=== PATIENT | male | born 1960 | race African-American/Black ===

== ENCOUNTER 2018-03-23 15:10 | Inpatient (IN) | payer OTHER ==
[2018-03-23] MEDS ORDERED: PROPOFOL 200 MG/20 ML VIAL ONE (16:23)
[2018-03-23] MEDS ORDERED: PHENYLEPHRINE-NS 100 MCG/ML 10 ML SYRINGE ONE (16:23)
[2018-03-23] MEDS ORDERED: Promethazine HCl 25 MG/ML VIAL SLOW IVP PRN (16:30)
[2018-03-23] MEDS ORDERED: Promethazine HCl 25 MG/ML VIAL IM PRN (16:30)
[2018-03-23] MEDS ORDERED: Ondansetron HCl/PF 4 MG/2 ML Vial IVP PRN (16:30)
[2018-03-23 17:02] LABS: Hemoglobin 7.5 g/dL (14.0-18.0)
--- NOTE | 2018-03-23 19:07 | CON ---
DATE OF CONSULTATION: NEPHROLOGY CONSULT REASON FOR CONSULTATION: End-stage renal disease, on maintenance hemodialysis. HISTORY OF PRESENT ILLNESS: This is a very pleasant 58-year-old gentleman, who presented to the hospital after having hematochezia. The patient's hemoglobin was 6. The patient is dialyzed on Friday, , and Friday. He was last dialysis on Friday. His potassium was normal, but he is developing hypertension and has received 2 units of blood. PAST MEDICAL HISTORY: 1. Hypertension. 2. ESRD, on dialysis Friday, , and Friday. 3. Anemia. 4. History of secondary hyperparathyroidism. 5. History of hypothyroidism. 6. History of diabetes mellitus. PAST SURGICAL HISTORY: None except AV fistula and tunneled catheter. ALLERGIES: REVIEWED. MEDICATIONS: Home medication list reviewed. REVIEW OF SYSTEMS: A 15-point review of systems was performed and negative except for positives noted above. NECK: No swelling or lumps. NOSE: No epistaxis or discharge. EYES: No diplopia or pain. MUSCULOSKELETAL: No joint pain. NEUROPSYCHIATRIC SYSTEMS: No suicidal ideation. No ideation. SKIN: Denies any rash or ulcer. CONSTITUTIONAL: No fever or chills. PHYSICAL EXAMINATION: CONSTITUTIONAL: The patient is awake and alert. VITAL SIGNS: Afebrile, pulse 90, breathing is 16, and blood pressure was 156/89. GENERAL APPEARANCE AND MENTAL STATUS: Fair. HEAD/NECK: Normocephalic. Atraumatic. EYES: EOMI. No deformity. EARS: Clear. No ulcers. NOSE: Intact. No lesions. MOUTH: Clear. No discharge. THROAT: Clear. No exudate. LUNGS: Clear. No crackles. CARDIAC: S1, S2. No rub. ABDOMEN: Benign. Bowel sounds positive. GENITALIA/RECTUM: Mauro absent. BACK/EXTREMITIES: Edema 0+. NEUROLOGICAL: Alert and motor intact. SKIN: LYMPHATICS: LABORATORY DATA: Labs show hemoglobin 6.4. Potassium is 4.3. ASSESSMENT AND PLAN: 1. Stage 6 chronic kidney disease. Plan dialysis. 2. Anemia, status post transfusion. 3. Hyperkalemia, stable. 4. Medications based on GFR are appropriate. 5. Hypertension. Plan dialysis. Risks versus benefits of dialysis were discussed. Job ID: [id number]
[2018-03-23] MEDS ORDERED: Ondansetron PF 4 MG/2 ML Vial IVP PRN (19:09)
[2018-03-23] MEDS ORDERED: Ondansetron ODT 4 MG TAB PO PRN (19:09)
[2018-03-23] MEDS ORDERED: Acetaminophen 325 MG TAB PO PRN (19:09)
[2018-03-23 19:28] LABS: HBSAg Index 0.42 S/CO (0-0.99); Hep B Core Total Ab Non-Reactive (NonReactive); Hep B Core Total Index 0.47 S/CO (0-0.79); Hep B Surf Ag Non-Reactive S/CO (NonReactive)
[2018-03-23] MEDS ORDERED: GoLYTELY 4,000 ml Bottle PO SCH (20:15)
[2018-03-23 20:20] LABS: Hep B Surf AB Reactive (NonReactive); Hep C IgG Ab Reflex HepC Qnt (NonReactive)
[2018-03-23 20:21] LABS: Hep C Index 14.39 S/CO (0-0.79)
[2018-03-23 20:22] LABS: HBSAB Concentration 287.27 mIU/mL
--- NOTE | 2018-03-23 20:40 | CON ---
DATE OF CONSULTATION: HISTORY OF PRESENT ILLNESS: Mr. Cruz is a 58-year-old gentleman, who was transferred from [facility] where he was brought from [facility] for 3 days, a rectal bleeding which he describes as bro-red. He has had associated nausea, weakness, and chills. He states he has never had bleeding like this in the past. He does report about 3 to 5 years ago. He had upper and lower endoscopies for anemia and was told nothing was found at that time. He was in his normal state of health when he started having these issues about 3 days ago. He has had some intermittent right lower chest pain for about a week. At the outside emergency room, he had a CAT scan, which was reportedly normal. On arrival here, blood pressure 171/73, pulse in 80s, temperature 98.2. He has been taking Naprosyn for the past couple of months for arthritic pain. He is also on Plavix. PAST MEDICAL HISTORY: Diabetes, history of hepatitis C, which he said was treated in 1999, he does not know if it has gone or not, hypertension, coronary artery disease, hypothyroidism. He is on hemodialysis Friday, , and Saturdays. He reports he has had previous coronary angiography, but did not have stents placed. He states he has some type of heart monitoring, but not a defibrillator. He has had a stent placed in the left shunt and has arm shunt. Chronic ischemic heart disease. PAST SURGICAL HISTORY: AV shunt left and right, right no longer in use, stent in left shunt, defibrillator implant. He states it is a monitor. He has never been shocked by anything in his chest. Please note, he had a chest tube for collapsed lung in the past. SOCIAL HISTORY: Former smoker. No alcohol or drugs. Not traveled outside yet. He is an inmate at [facility]. FAMILY HISTORY: Negative for GI disorders or liver disease. ALLERGIES: NONE KNOWN. MEDICATIONS: In detention: 1. Plavix. 2. Benadryl. 3. Gabapentin. 4. Insulin subcu Acarbose. 5. Amlodipine. 6. Atorvastatin. 7. Coreg. 8. Clotrimazole external. 9. Docusate suppository. 10. Hydralazine. 11. Isosorbide. 12. Lactulose p.r.n. 13. Levothyroxine. 14. He did receive some Protonix. 15. Aspirin once a day 81 mg. 16. Omeprazole. Medications here; 2 units of blood, Protonix drip were started. Medications at the outside facility; Protonix drip was started. He was typed and screened here, but not transfused. REVIEW OF SYSTEMS: Negative for chest pain, shortness of breath, or dyspnea on exertion. He is profoundly fatigued. He denies any lower abdominal pain. He has had some vague upper abdominal pain. IMAGING DATA: Outside CAT scan with oral contrast at 7:25 this morning showed some diverticulosis, no inflammatory changes. Atherosclerotic calcifications of abdominal aorta and its branches. No comment is made on the liver. The liver was felt to be normal. LABORATORY DATA: Laboratories outside; BUN of 64, creatinine 6.5, electrolytes normal. Potassium was 4.3. Anion gap was normal. Liver function tests notable for AST and ALT of 49 and 61, albumin 3.3, bilirubin 0.8. CBC showed a white count of 6.7, hemoglobin 6.4, MCV 95, platelets 171. INR was normal at 1.1. Differential was normal. Cardiac panel showed troponin of 0.03. Chest x-ray, no acute processes. Occult blood was positive. PHYSICAL EXAMINATION: VITAL SIGNS: Pulse 79, blood pressure 159/54 , and sats 98%. GENERAL: He is shivering. He has a blanket on, he is in shackles. He is in no distress. He is alert and oriented to person, place, and time. NECK: Supple. No adenopathy. Oropharynx, no lesions. LUNGS: Clear. HEART: Irregular rate and rhythm. ABDOMEN: Soft and nontender. There is no palpable hepatomegaly. There is no palmar erythema or spider angioma. EXTREMITIES: Show no clubbing, cyanosis, or edema. RECTAL: Shows nothing in the vault. ASSESSMENT: This is a 58-year-old gentleman with hematochezia and drop in hemoglobin to 6. He reports previous range of 8 to 10. He has had bleeding for several days. He is on NSAIDs, multiple risk factors for bleeding including use of Plavix and history of hepatitis C; although, he does not appear to be cirrhotic. He has been transfused 2 units of blood, some PPI here. Hemoglobin here was 8.9 and 7.5 at 1559 hours, white count 4.1. Chemistries otherwise normal, showed BUN and creatinine of 38 and 2.7. AST and ALT were 65 and 60. PLAN: Presently, his stomach is stable. We will proceed for upper endoscopy in light of his anticoagulation, NSAID use. If this is normal, we will try to perform a colonoscopy if there is nothing in the rectal vault. At this time, although it may be limited and unsuccessful as he is unprepped. Job ID: [id number]
[2018-03-23 22:23] VITALS: BMI 29.1
--- NOTE | 2018-03-23 22:39 | OP ---
DATE OF PROCEDURE: 03/23/2018 PROCEDURE PERFORMED: Esophagogastroduodenoscopy with flexible sigmoidoscopy. PREPROCEDURE DIAGNOSES: 1. Gastrointestinal bleeding for 3 days. 2. Symptomatic anemia, status post transfusion. 3. Anticoagulation with Plavix, aspirin, on NSAIDs. POSTPROCEDURE DIAGNOSES: 1. Esophagogastroduodenoscopy normal. 2. Prep for colonoscopy was incomplete. Flexible sigmoidoscopy was performed showing old blood throughout the colon and rectum, but no active blood or fresh blood, this was just coating the lumen, at about 30 cm formed stool was encountered. RECOMMENDATIONS: 1. H and H q.8 hours, transfuse as needed. 2. Bowel prep for colonoscopy tomorrow. 3. Time will be dependent on dialysis. ANESTHESIA: TIVA. DESCRIPTION OF PROCEDURE: The patient was informed of the risks, benefits, possible complications of endoscopy including perforation, reaction to medication, and aspiration. Informed consent was obtained. The patient was brought to endoscopy suite whey he stayed in a gradual fashion. Once he was comfortable, a bite block was placed into his oropharynx. The endoscope was advanced to the esophagus, stomach, second, and third portions of the duodenum. There was good visualization of the mucosa. The esophagus, stomach, and duodenum were normal with no signs of portal hypertension, varices, or old blood or fresh blood. There were no stigmata of recent bleeding. The duodenum was normal up to third portion. There was just bile noted. Retroflexed views in the stomach were normal. There was normal sensibility of the stomach. There were no abnormal folds. The scope was removed. The patient tolerated the procedure well with no complications. The patient was turned to the room and rectal exam performed that was normal. No stool. The endoscope was advanced to the anal canal and there was some old blood-maroonish coating in the lumen of the lower colon. Retroflexed views in the rectum were normal. There were no overt bleeding lesions identified. The prep was very poor. There was formed stool encountered about 25 cm and the procedure was aborted. The scope was removed. The patient tolerated the procedure well with no complications. Job ID: [id number]
[2018-03-23] MEDS: Pantoprazole 40 MG VIAL IVP SCH (22:50)
[2018-03-24 00:21] LABS: Hemoglobin 8.5 g/dL (14.0-18.0)
[2018-03-24] MEDS: Pantoprazole 40 MG VIAL IVP SCH (08:18)
[2018-03-24] MEDS ORDERED: Ondansetron HCl/PF 4 MG/2 ML Vial IVP PRN (09:30)
[2018-03-24] MEDS ORDERED: Promethazine HCl 25 MG/ML VIAL IM PRN (09:30)
[2018-03-24] MEDS ORDERED: Promethazine HCl 25 MG/ML VIAL SLOW IVP PRN (09:30)
[2018-03-24 10:25] LABS: Hemoglobin 7.9 g/dL (14.0-18.0); Mean Corpuscular HGB CONC 34.7 g/dL (32.0-36.0); Mean Corpuscular Hemoglobin 33.2 pg (27.0-31.0); Mean Corpuscular Volume 95.8 fL (78.0-98.0); Mean Platelet Volume 7.4 fL (7.4-10.4); Platelet Count 152 thou/uL (130-400); RBC Distribution Width 17.2 % (11.5-14.5); Red Blood Cell (RBC) Count 2.38 mill/uL (4.70-6.10); White Blood Cell (WBC) Count 7.3 thou/uL (4.8-10.8)
[2018-03-24 10:41] LABS: Anion Gap 19 mmol/L (10-20); BUN (Urea Nitrogen) 42 mg/dL (8.4-25.7); Calc. Creatinine Clearance 21 mL/min (70-130); Calcium 8.8 mg/dL (7.8-10.44); Carbon Dioxide 28 mmol/L (22-29); Chloride 97 mmol/L (98-107); Estimated GFR-MDRD 14; Glucose 189 mg/dL (70-105); Potassium 3.6 mmol/L (3.5-5.1); Sodium 140 mmol/L (136-145)
[2018-03-24 11:13] LABS: Anisocytosis SLIGHT = 6-15 cells (100X) (0-5/hpf); Band 5 % (5-11); Eosinophils 1 % (0-10); Lymphocytes 33 % (21-51); MDiff Complete? YES; Metamyelocyte 2 % (0-0); Monocytes 2 % (0-10); Neutrophil 57 % (42-75); Nucleated RBC 2 % (0); Polychromasia SLIGHT = 2-3 cells (100X) (0-2/hpf)
--- NOTE | 2018-03-24 11:18 | PRG ---
DATE OF SERVICE: 03/24/2018 SUBJECTIVE: The patient is a 58-year-old gentleman, being seen for end-stage renal disease. The patient denies any nausea, vomiting, or chest pain. OBJECTIVE: CONSTITUTIONAL: The patient is awake and alert. VITAL SIGNS: Afebrile. Pulse 82, breathing 16, blood pressure 146/77. GENERAL APPEARANCE AND MENTAL STATUS: Fair. HEAD/NECK: Normocephalic. Atraumatic. EYES: EOMI. No deformity. EARS: Clear. No ulcers. NOSE: Intact. No lesions. MOUTH: Clear. No discharge. THROAT: Clear. No exudate. LUNGS: Clear. No crackles. CARDIAC: S1, S2. No rub. ABDOMEN: Benign. Bowel sounds positive. GENITALIA/RECTUM: Mauro absent. LABORATORY DATA: Labs show hemoglobin 8.5. ASSESSMENT AND PLAN: 1. Chronic kidney disease, stage 5, plan dialysis tomorrow. 2. Hypertension, stable. 3. Anemia, stable. 4. Medications based on glomerular filtration rate are appropriate. Job ID: [id number]
--- NOTE | 2018-03-24 12:34 | OP ---
DATE OF PROCEDURE: 03/24/2018 PROCEDURE PERFORMED: Colonoscopy. PREPROCEDURE DIAGNOSIS: Gastrointestinal hemorrhage with negative upper endoscopy yesterday. POSTPROCEDURE DIAGNOSES: 1. Old blood scattered throughout the colon, vigorously irrigated and removed with no active bleeding seen. Diverticulosis coli, sigmoid colon. 2. Normal terminal ileum. 3. Suspected diverticular bleed. RECOMMENDATIONS: 1. Continue to hold Plavix for 2 weeks and aspirin for 1 week. 2. Can switch to p.o. PPI. ANESTHESIA: TIVA. PROCEDURE IN DETAIL: After the patient was informed of the risks, benefits, possible complications of endoscopy including perforation, reaction to medication, and aspiration. Informed consent was obtained. The patient was brought to endoscopy suite, where he was sedated in a gradual fashion. Once he was comfortable, rectal exam was performed. The endoscope was then advanced through the anal canal, where there was some [id number] blood noted. No clots. The scope was advanced slowly through the colon and the cecum, which was identified by ileocecal valve and appendiceal orifice. Terminal ileum was entered. About 2 L of irrigation was used to irrigate the colon, and there was no actually clot here, but we were able to get a good look at the colon mucosa today. There was no active bleeding site seen. There were sigmoid diverticulosis throughout the left colon and sigmoid colon. No active bleeding was seen in this area. Retroflexed views revealed some small internal hemorrhoids. No active bleeding was seen in this area. The scope was removed. The patient tolerated the procedure well without complications. Withdrawal time was about 45 minutes. I suspect this was diverticular bleed. We will treat appropriately. If there is rebleeding, we would consider a bleeding scan. We will hold dual antiplatelet therapy this time. Advance diet slowly. Job ID: [id number]
--- NOTE | 2018-03-24 14:40 | HP ---
PRIMARY CARE PHYSICIAN: [facility]. CHIEF COMPLAINT: Rectal bleeding. HISTORY OF PRESENT ILLNESS: Mr. Cruz is a 58-year-old male with history of end-stage renal disease, normally on Friday, , Friday hemodialysis, last treatment was Friday; diabetes, hypertension, hep C, coronary artery disease, and hypothyroidism. The patient relates a 2-day history of bro colored rectal bleeding and some dyspnea on exertion, and some lightheadedness today. He was taken to an outside emergency department at the [facility] where he was found to have a hemoglobin of 6.4, was subsequently transferred here. Between the time of the lab draw and arrival to our facility, he did have 2 units of packed red blood cells. Gastroenterology will be consulted. Denies any chest pain. Does have some nausea without vomiting and no cough or sputum production. PAST MEDICAL HISTORY: 1. End-stage renal disease, on Friday, , Friday hemodialysis. 2. Diabetes mellitus type 2, insulin dependent. 3. Hypertension. 4. Hepatitis C, chronic, status unknown. 5. Coronary artery disease. 6. Hypothyroidism. PAST SURGICAL HISTORY: 1. Right arm fistula creation. 2. Left arm fistula creation, still functional. 3. Left fistula stent placement. 4. AICD placement. HOME MEDICATIONS: 1. Plavix 75 mg daily. 2. Gabapentin, dose unknown. 3. Novolin N. 4. Novolin R. 5. Amlodipine. 6. Atorvastatin. 7. Hydralazine. 8. Clotrimazole cream. 9. Isosorbide mononitrate. 10. Levothyroxine. 11. Claritin. 12. Coreg. ALLERGIES: NKDA. FAMILY HISTORY: Negative for clotting or bleeding disorders, no immune dysfunction. SOCIAL HISTORY: Significant for being in [facility]. No history of drug use or tobacco abuse. REVIEW OF SYSTEMS: All systems reviewed and negative except as stated in the HPI. PHYSICAL EXAMINATION: VITAL SIGNS: He is afebrile. Pulse 76, blood pressure 158/89, respiratory rate 14, saturating 97% on room air. GENERAL: Awake. He is alert and oriented x3. Well developed, well nourished, male, appears to be in no acute distress. HEENT: Normocephalic, atraumatic. Pupils equal, round, reactive to light bilaterally. Mucous membranes are moist. There is no visible lesion or thrush. NECK: Supple. There is no lymphadenopathy, JVD, or thyromegaly. He had normal carotid upstrokes. I do not appreciate bruit. LUNGS: Clear to auscultation bilaterally without wheezes, rales, or rhonchi. Good air movement. Symmetric chest excursion. No bibasilar crackles. ABDOMEN: Soft, nontender, nondistended. No mass or organomegaly. EXTREMITIES: No cyanosis, clubbing, or edema. SKIN: Warm, moist, well perfused. No rash or lesion. He does have shackles in place. MUSCULOSKELETAL: Normal to inspection. Large joints appear normal. There is no evidence of inflammation or palpable effusion. NEUROLOGIC: Cranial nerves 2 through 12 grossly intact. There are no focal neurologic deficits. LABORATORY DATA: Labs in the outside facility, sodium 132, potassium 4.3, chloride 91, bicarb 26, BUN 64, creatinine 6.5, glucose 78, and calcium 9.2. Liver function I believe within normal limits. CBC showed a white count of 6.7, hemoglobin 6.4, hematocrit of 19.2, platelet count 171,000 . ASSESSMENT AND PLAN: 1. Probable lower GI bleeding. The patient rectal bleeding. 2. Acute blood loss anemia. 3. Hypertension. The patient has not taken medicines today. We will hold currently. 4. Hepatitis C, chronic. 5. End-stage renal disease, on hemodialysis. Dr. Reyna has been consulted. 6. Diabetes mellitus type 2. The patient is n.p.o. at present. We will start a sliding scale insulin once he is eating. 7. Coronary artery disease. 8. Hypothyroidism. Dr. Meehan was consulted by the ER. He has been taken for EGD tonight, not likely the source of the bleeding and if negative, we will prep for colonoscopy hopefully. Otherwise, we will follow along. We will make clinical data available. Job ID: [id number]
[2018-03-24] MEDS ORDERED: Dextrose 50% Abboject 50 ML SYRINGE IVP PRN (15:18)
[2018-03-24] MEDS ORDERED: Dextrose 5% in Water 1,000 ML IV PRN (15:18)
--- NOTE | 2018-03-24 16:49 | PDOC.PN ---
- Subjective Encounter Start Date: 03/24/18 Encounter Start Time: 11:15 - Objective Resuscitation Status - Order Detail: 03/23/18 17:06 Resuscitation Status Routine Resuscitation Status: FULL: Full Resuscitation MAR Reviewed: Yes Vital Signs & Weight: Weight Weight 215 lb 1.6 oz I&O: 03/23/18 03/24/18 03/25/18 06:59 06:59 06:59 Intake Total 4000 Balance 4000 Result Diagrams: 03/24/18 10:08 03/24/18 10:08 Additional Labs: Accuchecks 03/24/18 03/24/18 11:07 04:52 POC Glucose 279 H 249 H Dx/Plan - Plan * .
[2018-03-24 17:53] LABS: Hemoglobin 7.4 g/dL (14.0-18.0)
[2018-03-24] MEDS: Insulin Regular 300 UNITS/3 ML VIAL SC PRN (21:49)
[2018-03-24] MEDS: NPH, Human Insulin Isophane 300 UNIT/3 ML VIAL SC SCH (21:50)
[2018-03-25] MEDS: NPH, Human Insulin Isophane 300 UNIT/3 ML VIAL SC SCH ×2 (08:11→20:26)
[2018-03-25] MEDS ORDERED: Acetaminophen 325 MG TAB PO SCH (09:00)
[2018-03-25 09:55] LABS: Hemoglobin 7.4 g/dL (14.0-18.0)
--- NOTE | 2018-03-25 11:39 | PRG ---
DATE OF SERVICE: SUBJECTIVE: The patient is a 58-year-old gentleman, being seen for end-stage renal disease. The patient denies any nausea, vomiting, or chest pain. OBJECTIVE: VITAL SIGNS: Afebrile. Pulse 94, breathing is 16, blood pressure is 136/72. Awake, alert, in no acute distress. GENERAL APPEARANCE AND MENTAL STATUS: Fair. HEAD/NECK: Normocephalic. Atraumatic. EYES: EOMI. No deformity. EARS: Clear. No ulcers. NOSE: Intact. No lesions. MOUTH: Clear. No discharge. THROAT: Clear. No exudate. LUNGS: Clear. No crackles. CARDIAC: S1, S2. No rub. ABDOMEN: Benign. Bowel sounds positive. GENITALIA/RECTUM: Mauro absent. BACK/EXTREMITIES: Edema 0+. NEUROLOGICAL: Alert and motor intact. SKIN: LYMPHATICS: DIAGNOSTIC DATA: Hemoglobin is 7.6, potassium is 3.6. ASSESSMENT: 1. Chronic kidney disease. Plan, dialysis. 2. Hypertension, stable. 3. Anemia. Plan, transfusion. Job ID: [id number]
--- NOTE | 2018-03-25 13:17 | PRG ---
DATE OF SERVICE: 03/25/2018 SUBJECTIVE: Mr. Cruz has had no further bleeding, had actually a formed stool. He is eating well. His blood count did drop down to 7.7. This morning, when we recheck, it was 7.4. He is having dialysis now and is going to get 2 units of blood. He is without complaints. OBJECTIVE: VITAL SIGNS: Temperature is 98.2, pulse 78, blood pressure 136/72. LUNGS: Clear. ABDOMEN: Soft and nontender. LABORATORY DATA: Otherwise, his glucose is 143. ASSESSMENT: GI bleed, likely diverticular, resolved. RECOMMENDATIONS: 1. Hold off anticoagulation for 1 week. He can resume aspirin 81 mg daily at the time of discharge. 2. Agree with transfusion and if he remained stable, can discharge later today or tomorrow back to [facility]. Job ID: [id number]
[2018-03-26] MEDS: Insulin Regular 300 UNITS/3 ML VIAL SC PRN ×2 (06:19→17:36)
[2018-03-26 09:20] LABS: #Eosinphils 0.2 thou/uL (0.0-0.7); #Monocytes 0.5 thou/uL (0.11-0.59); #Neutrophils 3.4 thou/uL (1.40-6.50); %Basophils 0.6 % (0.0-1.0); %Eosinophils 3.4 % (0.0-10.0); %Lymphocytes 19.1 % (21.0-51.0); %Monocytes 9.2 % (0.0-10.0); %Neutrophils 67.7 % (42.0-75.0); Hemoglobin 9.7 g/dL (14.0-18.0); Mean Corpuscular HGB CONC 34.2 g/dL (32.0-36.0); Mean Corpuscular Hemoglobin 32.5 pg (27.0-31.0); Mean Corpuscular Volume 94.9 fL (78.0-98.0); Mean Platelet Volume 7.8 fL (7.4-10.4); Platelet Count 150 thou/uL (130-400); RBC Distribution Width 15.4 % (11.5-14.5)
[2018-03-26 09:25] LABS: Prothrombin Time 13.1 SEC (12.0-14.7)
[2018-03-26 09:36] LABS: Anion Gap 14 mmol/L (10-20); BUN (Urea Nitrogen) 28 mg/dL (8.4-25.7); Calc. Creatinine Clearance 26 mL/min (70-130); Calcium 9.2 mg/dL (7.8-10.44); Carbon Dioxide 28 mmol/L (22-29); Chloride 102 mmol/L (98-107); Estimated GFR-MDRD 18; Glucose 153 mg/dL (70-105); Potassium 3.7 mmol/L (3.5-5.1); Sodium 140 mmol/L (136-145)
[2018-03-26] MEDS: NPH, Human Insulin Isophane 300 UNIT/3 ML VIAL SC SCH (10:09)
--- NOTE | 2018-03-26 11:59 | PRG ---
DATE OF SERVICE: 03/26/2018 SUBJECTIVE: This is a 58-year-old gentleman, being seen for end-stage renal disease. The patient denies any nausea, vomiting, or chest pain. OBJECTIVE: CONSTITUTIONAL: Awake, alert, in no acute distress. VITAL SIGNS: Afebrile. Pulse 64, breathing is 16, blood pressure is 130/64. GENERAL APPEARANCE AND MENTAL STATUS: Fair. HEAD/NECK: Normocephalic. Atraumatic. EYES: EOMI. No deformity. EARS: Clear. No ulcers. NOSE: Intact. No lesions. MOUTH: Clear. No discharge. THROAT: Clear. No exudate. LUNGS: Clear. No crackles. CARDIAC: S1, S2. No rub. ABDOMEN: Benign. Bowel sounds positive. GENITALIA/RECTUM: Mauro absent. BACK/EXTREMITIES: Edema 0+. NEUROLOGICAL: Alert and motor intact. LABORATORY DATA: Show hemoglobin is 9.7. Potassium is 3.7. ASSESSMENT AND RECOMMENDATION: 1. Stage 6 chronic kidney disease. Continue dialysis. 2. Hypertension, stable. 3. Anemia, stable. 4. Medications based on glomerular filtration rate are appropriate. Job ID: [id number]
[2018-03-26 14:12] LABS: Hep C PCR-Quant 4370000 IU/mL (.)
[2018-03-26 15:43] VITALS: BP 157/67; TEMP 98.4
--- NOTE | 2018-03-26 16:38 | DIS ---
DATE OF ADMISSION: 03/23/2018 DATE OF DISCHARGE: 03/26/2018 CONSULTANTS: 1. Dr. Meehan of GI. 2. Dr. Reyna of Nephrology. DISCHARGE MEDICATIONS: Medications are reconciled at discharge and are unchanged compared to admission with two exceptions. 1. Exception #1 is aspirin 81 mg once daily, to start on March 27. 2. Exception #2 is Plavix 75 mg once daily, to start on March 28. 3. Acetaminophen 325 mg tablet, two tablets every 6 hours as needed for pain. 4. Amlodipine 10 mg daily. 5. Atorvastatin 80 mg at bedtime. 6. Carvedilol 3.125 mg p.o. b.i.d. 7. Docusate sodium 100 mg b.i.d. 8. Nephro-Liv 1 tablet daily. 9. Gabapentin 300 mg at bedtime. 10. Insulin NPH 14 units in the morning, 12 units in the evening. 11. Insulin regular 5 units twice daily with meals plus correction scale regular insulin per the group home facility sliding scale. 12. Isosorbide mononitrate 30 mg tablet, 3 tablets daily. 13. Lactulose 10 g packet, 1 packet four times daily. 14. Levothyroxine 75 mcg daily. 15. Loratadine 10 mg ointment apply daily. 16. Naproxen 250 mg p.o. b.i.d. 17. Omeprazole 20 mg daily. 18. Polyvinyl alcohol ophthalmic solution, two drops each eye twice daily. 19. Sevelamer 800 mg p.o. t.i.d. 20. Benadryl 50 mg p.o. b.i.d. 21. Hydralazine 50 mg tablet, 2 tablets three times daily. The patient is on hemodialysis and will need these orders renewed by the [facility]. FOLLOWUP: 1. Follow up is with the Medical Department to recheck CBC in 2 days with the next dialysis. Pt can return to hemodialysis on , , Sat 2. Follow up with GI within the group home system as needed and with any recurrence of symptoms. FINAL DIAGNOSES: 1. Lower gastrointestinal bleed secondary to diverticula. 2. Anemia secondary to acute blood loss as well as chronic kidney disease. 3. Hypertension. 4. Hepatitis C, chronic. 5. End-stage renal disease, on hemodialysis. 6. Diabetes mellitus type 2. 7. Coronary artery disease. 8. Hypothyroidism. 9. Neuropathy. 10. Constipation. 11. Diverticulosis HISTORY OF PRESENT ILLNESS: Mr. Cruz is a 58-year-old male with the above medical problems, who presented to the emergency room at [facility] secondary to bright red blood per rectum. He was found to have a hemoglobin of 6.4 and transferred to this facility. HOSPITAL COURSE: The patient was transfused a total of 3 units of packed red blood cells. He was evaluated by GI and underwent EGD first on 03/23 which was normal - unable to complete colonoscopy due to prep. He then had a colonoscopy on 03/24 with no active bleeding identified. There was old blood scattered throughout the colon which was irrigated without any recurrence of bleeding, and diverticulosis was noted. The patient was evaluated by Dr. Reyna of Nephrology and underwent hemodialysis yesterday in addition to transfusion. He has tolerated this well and will be ready for his next hemodialysis in 2 days for his normal Friday, , and Friday schedule. The patient is overall feeling well, denies any lightheadedness or dizziness. He has not passed any further blood, and reports normal appetite. He does meet criteria for discharge back to the group home facility. Because the patient is on dual antiplatelet therapy with a history of stent placement, he will resume aspirin starting tomorrow and Plavix starting in 2 days. If he has recurrence of any GI bleeding, he will need to be evaluated again and these medications again reconsidered. Of note, the patient's medications are reconciled with the exception of the hemodialysis orders, which should be ordered by the paid search marketing strategist who serves the group home system. PHYSICAL EXAMINATION: VITAL SIGNS: On day of discharge, blood pressure 167/74, temperature 98.3, pulse 74, respirations 16, and saturations 97% on room air. GENERAL: Awake, alert, responsive, in no apparent distress. Able to speak in full sentences. LUNGS: Clear to auscultation bilateral. HEART: Normal S1 and S2. Regular rate and rhythm with no significant murmur. ABDOMEN: Soft. Present bowel sounds. Nontender, nondistended. EXTREMITIES: No pitting edema. QUIROZ FINDINGS AND TEST RESULTS: CBC; today, WBC 5.0, hemoglobin 9.7, hematocrit 28.4, platelets 150. Of note, the lowest hemoglobin which measured here was 7.0 , early yesterday morning. Chemistry; sodium 140, potassium 3.7, chloride 102, bicarbonate 28, BUN 28, and creatinine 4.2, glucose 153. Blood sugars have ranged from 153 to 201. Hepatitis C antibody positive. Hepatitis B antigen nonreactive, antibody reactive. PROCEDURES: The patient underwent colonoscopy on 03/24 with findings as noted above. The patient underwent an EGD on 03/23 which was normal. Unable to complete colonoscopy due to inadequate prep. DIET: Renal and diabetes prudent. ACTIVITY: As tolerated. I reviewed with the patient this hospitalization, the likely source of the GI bleed, the possibility that this can occur again and to seek help. There were no questions or further needs at the end of evaluation. TIME SPENT: Total time coordinating discharge is 35 minutes. DISCHARGE DISPOSITION: Back to the group home facility, [facility]. CODE STATUS: Full. Job ID: [id number]
== END 2018-03-26 18:31 | DRG 377 ==
LOC: ERS 15:10 → EEVIPCON 15:10 → ERS 16:47 → T4-B 19:09
PROVIDERS: ADMIT Internal Medicine Gastroenterology; ATTEND Internal Medicine Gastroenterology
PROC: 0DJ08ZZ Inspection of Upper Intestinal Tract, Via Natural or Artificial Opening Endoscopic (ICD-10-PCS; 2018-03-23)
PROC: 0DJD8ZZ Inspection of Lower Intestinal Tract, Via Natural or Artificial Opening Endoscopic (ICD-10-PCS; 2018-03-23)
PROC: 30233N1 Transfusion of Nonautologous Red Blood Cells into Peripheral Vein, Percutaneous Approach (ICD-10-PCS; 2018-03-23)
PROC: 5A1D70Z Performance of Urinary Filtration, Intermittent, Less than 6 Hours Per Day (ICD-10-PCS; 2018-03-23)
PROC: 0DJD8ZZ Inspection of Lower Intestinal Tract, Via Natural or Artificial Opening Endoscopic (ICD-10-PCS; principal; 2018-03-24)
DX: K57.31 Diverticulosis of large intestine without perforation or abscess with bleeding (principal); N18.6 End stage renal disease; D62 Acute posthemorrhagic anemia; I12.0 Hypertensive chronic kidney disease with stage 5 chronic kidney disease or end stage renal disease; E11.22 Type 2 diabetes mellitus with diabetic chronic kidney disease; I25.10 Atherosclerotic heart disease of native coronary artery without angina pectoris; E03.9 Hypothyroidism, unspecified; B18.2 Chronic viral hepatitis C; D63.1 Anemia in chronic kidney disease; K59.00 Constipation, unspecified; E87.5 Hyperkalemia; E11.40 Type 2 diabetes mellitus with diabetic neuropathy, unspecified; Z98.890 Other specified postprocedural states; Z99.2 Dependence on renal dialysis; Z95.810 Presence of automatic (implantable) cardiac defibrillator; Z79.02 Long term (current) use of antithrombotics/antiplatelets; Z79.4 Long term (current) use of insulin; Z79.899 Other long term (current) drug therapy; G89.29 Other chronic pain; M54.9 Dorsalgia, unspecified; K64.8 Other hemorrhoids
CPT/HCPCS: 36415; 36416; 36430; 80048; 85014; 85018; 85025; 85610; 86704; 86706; 86803; 86850; 86900; 86901; 87340; 87522; 90935; C9113; G0257; J1815; J2704; P9016